=== PATIENT | female | born 1950 | race Two or more races ===

== ENCOUNTER → 2024-08-25 | Outpatient (CLI) | payer OTHER, MEDICAID, SELFPAY ==
--- NOTE | 2024-08-25 | XR_ITS ---
Examination: Hand, left 3 views Technique: Hand AP, oblique, lateral 3 views Date and time of exam: August 25, 2024 at 1216 hours INDICATIONS: Left hand fourth digit trigger finger 3 months FINDINGS: Severe osteopenia No fracture Advanced osteoarthritis first carpometacarpal joint Mild to moderate osteoarthritis interphalangeal joints No dislocation No cortical bone erosions IMPRESSION: Severe osteopenia Advanced osteoarthritis first carpometacarpal joint
== END | disposition home or self-care (01) ==
PROVIDERS: PCP Nurse Practitioner Family; Referring Provider Nurse Practitioner Family; Visit Provider Nurse Practitioner Family
DX: M85.842 Other specified disorders of bone density and structure, left hand (principal); M18.12 Unilateral primary osteoarthritis of first carpometacarpal joint, left hand
CPT/HCPCS: 73130

== ENCOUNTER 2025-01-08 16:24 | Emergency (ER) | payer OTHER, MEDICAID, SELFPAY ==
[2025-01-08 16:24] VITALS: BMI 30.1
[2025-01-08 16:37] VITALS: BP 152/81; PULSE 78; RESP 19; TEMP 36.7; O2SAT 96
--- NOTE | 2025-01-08 16:45 | XR_ITS ---
Examination: CT abdomen and pelvis without contrast. Coronal 3-D reconstructions. Sagittal 2-D reconstructions. Date and time of exam:January 08, 2025 1732 hours INDICATIONS: Epigastric pain and vomiting beginning 5 days ago CTDI: vol (mGy): 7.19 DLP: (mGycm): 378 Technique: Axial images of the abdomen have been obtained, 3 mm slice thickness Intravenous contrast material has not been administered. Low dose protocols were performed. One or more of the following dose reduction techniques were used; automated exposure control, adjustment of the mA and/or KV according to patient size, use of iterative reconstruction technique. Findings: No liver or splenic lesions Absent gallbladder No pancreatic or adrenal mass No renal or ureteral calculi, no hydronephrosis Aortic calcification no aneurysmal dilatation Mildly fluid distended small bowel loops No periappendiceal inflammatory change Atrophic uterus No adnexal mass Contracted urinary bladder Moderate degenerative disc disease L5-S1 moderate narrowing hip joints IMPRESSION: Mildly fluid distended small bowel loops, differential would include ileus, enteritis such as Crohn's disease, early small bowel obstruction not excluded, consider Gastrografin small bowel series follow-up as clinically warranted
--- NOTE | 2025-01-08 16:49 | PD.EDRME ---
Rapid Medical Screening Exam RME Arrival date/time: 01/08/25 16:24 74-year-old female with a history of hypertension presents to the emergency room with a chief complaint of 8 out of 10 epigastric pain, abdominal bloating, vomiting x 4 days I have greeted and performed a focused initial assessment of this patient. A comprehensive ED assessment and evaluation of the patient, analysis of all test results, and completion of the medical decision making process will be conducted by additional ED providers. Chief Complaint: Abdominal Pain Vital signs: Vital Signs Temperature 98.1 F 01/08/25 16:37 Pulse Rate 78 01/08/25 16:37 Respiratory Rate 19 01/08/25 16:37 Blood Pressure 152/81 H 01/08/25 16:37 Pulse Oximetry (%) 96 01/08/25 16:37 Oxygen Delivery Method Room Air 01/08/25 16:37 Vital signs reviewed by provider: Yes
[2025-01-08 17:26] LABS: Basophils # (Auto) 0.1 Thou/mm3 (0.0-0.2); Basophils % (Auto) 1 % (0-2.5); Eosinophils # (Auto) 0.2 Thou/mm3 (0.0-0.5); Eosinophils % (Auto) 1 % (0-10); Hematocrit 39.9 % (36.0-46.0); Hemoglobin 13.9 g/dL (12.0-16.0); Immature Granulocytes % (Auto) 0 % (0-0); Immature Granulocytes Auto 0.04 Thou/mm3 (0.00-0.00); Lymphocytes # (Auto) 1.4 Thou/mm3 (1.0-4.8); Lymphocytes % (Auto) 13 % (10-50); Mean Corpuscular HGB Conc 34.8 g/dl (31.0-37.0); Mean Corpuscular Hemoglobin 29.8 pg (25.0-35.0); Mean Corpuscular Volume 86 fL (80-100); Monocytes # (Auto) 0.6 Thou/mm3 (0.0-0.8); Monocytes % (Auto) 5 % (0-12); Neutrophils # (Auto) 8.5 Thou/mm3 (1.8-7.7); Neutrophils % (Auto) 79 % (37-80); Nucleated Red Blood Cell % 0 /100 WBC (0); Platelet Count 232 Thou/mm3 (140-440); RDW Standard Deviation 40.1 fL (36.4-46.3); Red Blood Count 4.66 Miln/mm3 (4.00-5.20); White Blood Count 10.7 Thou/mm3 (3.6-11.0)
--- NOTE | 2025-01-08 17:35 | PC.NURSE ---
HAVE ATTEMPTED TO CALL RT MULTIPLE TIMES AND LINES BUSY. WILL KEEP TRYING
[2025-01-08] MEDS: MG HYD/AL HYD/SIME (Maalox Reg) SUSP 30 ML UDC PO (17:40)
[2025-01-08] MEDS: ONDANSETRON ODT 4 MG TABRAP PO (17:41)
[2025-01-08 17:45] LABS: Collection Type, Urine Clean Catch
[2025-01-08 17:48] LABS: Alanine Aminotransferase 18 U/L (10-49); Albumin, Serum 4.6 gm/dL (3.4-4.8); Albumin/Globulin Ratio 1.9 (1.2-2.2); Alkaline Phosphatase 58 U/L (46-116); Anion Gap 10 (7-16); BUN/Creatinine Ratio 21 Ratio (12-20); Bilirubin,Total 0.4 mg/dL (0.3-1.2); Blood Urea Nitrogen 17 mg/dL (9-23); Calcium 9.2 mg/dL (8.3-10.6); Calcium (Corrected) 9.2 mg/dL (8.5-10.1); Carbon Dioxide 25.6 mMol/L (20.0-31.0); Chloride 108 mMol/L (98-107); Creatinine (Component) 0.8 mg/dL (0.6-1.3); Estimated Creatinine Clearance 58.8 mL/min (>60); Globulin 2.4 gm/dL (2.3-3.5); Glucose 114 mg/dL (74-106); Lipase 47 U/L (12-53); Osmolality,Calculated 289 (275-295); Potassium 4.1 mMol/L (3.4-5.1); Sodium 144 mMol/L (136-145); eGFR > 60 See Note
[2025-01-08 18:25] LABS: Bacteria,Urine Rare; Bilirubin,Urine Negative (Negative); Blood,Urine Negative (Negative); Clarity,Urine Turbid (Clear/Hazy); Color,Urine Yellow (Lt Yel-Yel); Glucose, Urine Negative (Negative); Ketones,Urine Negative (Negative); Leukocyte Esterase,Urine Positive (Negative); Nitrite,Urine Negative (Negative); PH,Urine 6.5 (5.0-7.0); Protein,Urine Trace (Neg - Trace); RBC,Urine 7 /hpf (0-3); Specific Gravity,Urine 1.027 (1.001-1.035); Squamous Epithelial Cell,Urine 2 /hpf (0-5); Urobilinogen,Urine Negative mg/dL (0.0-1.0); WBC,Urine 36 /hpf (0-5)
--- NOTE | 2025-01-08 18:27 | PD.EDABDPN ---
ED Abdominal Pain RME/HPI General Chief Complaint: Abdominal Pain Stated complaint: VOMITING/DIARRHEA/ABD PAIN X 4 DAYS Time seen by provider: 01/08/25 18:00 Arrival date/time: 01/08/25 16:24 Limitations: no limitations RME / HPI RME / HPI narrative: 01/08/25 16:24 74-year-old female with a history of hypertension presents to the emergency room with a chief complaint of 8 out of 10 epigastric pain, abdominal bloating, vomiting x 4 days I have greeted and performed a focused initial assessment of this patient. A comprehensive ED assessment and evaluation of the patient, analysis of all test results, and completion of the medical decision making process will be conducted by additional ED providers. 74-year-old female with a history of hypertension presents to the emergency room with a chief complaint of 8 out of 10 epigastric pain, abdominal bloating, vomiting x 4 days. Also with intermittent diarrhea. States always has lower abdominal pressure. Denies chronic diseases Related Data Home Medications ?Medication ?Instructions ?Recorded ?Confirmed lisinopril 20 1 tab PO QDAY 05/02/18 05/02/18 mg-hydrochlorothiazide 12.5 mg tablet Previous Rx's ?Medication ?Instructions ?Recorded ibuprofen 600 mg tablet 600 mg PO Q8HR PRN PAIN #30 tabs 09/30/16 ciprofloxacin HCl 500 mg tablet 500 mg PO Q12H 10 days #20 tabs 01/08/25 (Cipro) dicyclomine 10 mg capsule 10 mg PO TID #30 caps 01/08/25 metronidazole 500 mg tablet 500 mg PO BID 10 days #20 tabs 01/08/25 ondansetron 4 mg disintegrating 4 mg PO Q8H PRN nausea and 01/08/25 tablet vomiting #10 tabs Allergies Allergy/AdvReac Type Severity Reaction Status Date / Time hydrocodone Allergy Severe RASH, Verified 01/08/25 16:27 ITCHING Review of Systems Review of Systems Systems Reviewed: All systems reviewed, normal except as documented Constitutional Constitutional: Denies fever(s) Gastrointestinal Gastrointestinal: Reports as per HPI Genitourinary Genitourinary: Reports as per HPI ED Exam General Limitations: Present no limitations General appearance: Present alert and in no apparent distress Eye Eye exam: Present normal appearance, PERRL and EOMI Respiratory Respiratory exam: Present normal lung sounds bilaterally Cardiovascular Cardiovascular exam: Present regular rate, normal rhythm and normal heart sounds Abdominal Exam Abdominal exam: Present soft, tenderness (Suprapubic TTP; diffuse TTP no rebound) and normal bowel sounds Extremities Exam Extremities exam: Present normal inspection and full ROM Back Exam Back exam: Present normal inspection and full ROM Psychiatric Psychiatric exam: Present normal affect and normal mood Skin Skin exam: Present warm, dry, intact and normal color Course Quality Measures none Orders Category Date Time Status CT abdomen pelvis wo con Stat Exams 01/08/25 16:45 Completed CBC Stat Lab 01/08/25 17:08 Completed CMP [Comprehensive Metabolic Panel] Stat Lab 01/08/25 17:08 Completed Lipase Stat Lab 01/08/25 17:08 Completed UA [Urinalysis] Stat Lab 01/08/25 17:28 Completed Urine Culture Stat Lab 01/08/25 17:28 Received Ciprofloxacin HCl [Ciprofloxacin] Med 01/08/25 18:32 Discontinued 500 mg PO X1 ONE Ondansetron Odt [Zofran Odt] Med 01/08/25 16:50 Discontinued 4 mg PO X1 ONE metroNIDAZOLE [Flagyl] Med 01/08/25 18:32 Discontinued 500 mg PO X1 ONE mg Hyd/Al Hyd/Chikis Susp [Maalox Susp] Med 01/08/25 16:45 Discontinued 30 ml PO X1 ONE Vital Signs Vital signs: Vital Signs Temperature 98.1 F 01/08/25 16:37 Pulse Rate 78 01/08/25 16:37 Respiratory Rate 19 01/08/25 16:37 Blood Pressure 152/81 H 01/08/25 16:37 Pulse Oximetry (%) 96 01/08/25 16:37 Oxygen Delivery Method Room Air 01/08/25 16:37 Abdominal Pain MDM Patient data External records reviewed:: [facility] previous records Clinical information provided by:: patient and family Social determinants that could affect healthcare access:: other (specify) (Difficult getting appoint with PCP,) Patient has the following chronic illnesses:: None How is presenting disease/condition affected by chronic disease/condition?: no chronic disease Evaluation data The following diagnostics were reviewed and interpreted by me:: lab results and radiology exam(s) Lab and/or radiology exams considered but not ordered:: CT of chest was also considered however unlikely to change the course of treatment today Interpretation Summary: CBC CMP within normal limits UA did not suggest UTI CT scan suggest enteritis however given discomfort we will treat for infectious process. Advised patient to have EGD and colonoscopy as outpatient procedure. Follow-up with PCP return to ER symptoms worsen Medications / Prescriptions Medications or Prescriptions considered but not ordered:: Considered narcotic however risk of adverse reaction Medication administrations:: Medication Administration History Discontinued Medications Al Hydrox/Mg Hydrox/Simethicone (Mg Hyd/Al Hyd/Chikis (Maalox Reg) Susp 30 Ml Udc) 30 ml PO X1 ONE Stop: 01/08/25 16:46 Last Admin: 01/08/25 17:40 Dose: 30 ml Documented By: EF Ciprofloxacin (Ciprofloxacin Hcl 250 Mg Tablet) 500 mg PO X1 ONE Stop: 01/08/25 18:33 Last Admin: 01/08/25 18:58 Dose: 500 mg Documented By: EF Metronidazole (Metronidazole 250 Mg Tablet) 500 mg PO X1 ONE Stop: 01/08/25 18:33 Last Admin: 01/08/25 18:58 Dose: 500 mg Documented By: EF Ondansetron HCl (Ondansetron Odt 4 Mg Tabrap) 4 mg PO X1 ONE; Protocol Stop: 01/08/25 16:51 Last Admin: 01/08/25 17:41 Dose: 4 mg Documented By: EF See above Consultations Consultation(s) initiated? (list below): No Diagnosis Differential diagnosis abdominal pain: abdominal pain, acute appendicitis, calculus of kidney, diverticulitis, endometriosis, gastroenteritis and pancreatitis Most likely diagnosis given after review of the tests above:: Diarrhea Abdominal pain UTI Admission Indicated Admission indicated?: not indicated Admission Request Was there a request for admission?: No Disposition Plan Disposition Plan: Discharge Discharge Attestation Discharge Attestation: The patient and all family members were given an opportunity to ask questions and understood the discharge instructions. Discharge instructions specifically effects, indications for sooner follow up or return to the emergency department, and the expected course of current diagnosis. Patient condition: Stable Discharge Plan Plan Patient Disposition: HOME (Self Care) Discharge Disposition comment: Follow-up with PCP in 2 to 3 days Prescriptions/Referrals Prescriptions/Med Rec: New ciprofloxacin HCl [Cipro] 500 mg tablet 500 mg PO Q12H 10 Days Qty: 20 0RF metronidazole 500 mg tablet 500 mg PO BID 10 Days Qty: 20 0RF ondansetron 4 mg tablet,disintegrating 4 mg PO Q8H PRN (Reason: nausea and vomiting) Qty: 10 0RF dicyclomine 10 mg capsule 10 mg PO TID Qty: 30 0RF No Action ibuprofen 600 MG tablet 600 mg PO Q8HR PRN (Reason: PAIN) Qty: 30 0RF lisinopril-hydrochlorothiazide 20-12.5 mg Tablet 1 tab PO QDAY Problem List Clinical Impression: Diarrhea, Abdominal pain, Vomiting, Acute UTI Patient/Caregiver Discharge Instructions Education Materials: Abdominal Pain, ED Diarrhea, Unknown Cause Print Language: Pashto Stand Alone Forms: [facility] Award Info., Patient Portal Info Letter PA/PHOTOGRAPH DEVELOPER Supervising Physician PA/PHOTOGRAPH DEVELOPER Supervising Physician: Dr. Altman
[2025-01-08] MEDS: CIPROFLOXACIN HCL 250 MG TABLET 500 MG PO (18:58)
[2025-01-08] MEDS: metroNIDAZOLE 250 MG TABLET 500 MG PO (18:58)
[2025-01-08 19:03] VITALS: BP 127/74; PULSE 69; RESP 16; TEMP 36.3; O2SAT 96
== END 2025-01-08 19:08 | disposition home or self-care (01) ==
LOC: SERX 19:13
PROVIDERS: Nurse Practitioner Family; Emergency Provider Emergency Medicine; PCP Nurse Practitioner Family
DX: N39.0 Urinary tract infection, site not specified (principal); R10.13 Epigastric pain; R11.10 Vomiting, unspecified; R19.7 Diarrhea, unspecified
CPT/HCPCS: 36415; 74176; 80053; 81001; 83690; 85025; 87086; 99284; Q0162; A9270

== ENCOUNTER → 2025-01-19 | Outpatient (CLI) | payer OTHER, MEDICAID, SELFPAY ==
--- NOTE | 2025-01-19 12:08 | XR_ITS ---
Examination: Abdomen sonogram, complete Date and time of exam: January 19, 2025 1211 hours INDICATIONS: Epigastric pain beginning 2 weeks ago. Technique: Multiple real-time grayscale transabdominal sonographic images of the abdomen have been obtained. Findings: Gallbladder not visualized Common bile duct 0.5 cm no stones Pancreatic head 2.0 cm Liver 13.3 cm smooth contour no focal liver lesions Normal hepatopedal portal venous flow Patent IVC Right kidney 10.4 cm cortex 1.4 cm Left kidney 9.7 cm cortex 1.2 cm No hydronephrosis or renal calculi Spleen 10.1 cm IMPRESSION: Gallbladder not visualized Normal common bile duct No focal liver lesions
== END | disposition home or self-care (01) ==
LOC: CDIM 11:57
PROVIDERS: PCP Family Medicine; Referring Provider Nurse Practitioner Family; Visit Provider Nurse Practitioner Family
DX: R10.13 Epigastric pain (principal)
CPT/HCPCS: 76700

== ENCOUNTER → 2025-03-09 | Outpatient (CLI) | payer OTHER, MEDICAID, SELFPAY ==
--- NOTE | 2025-03-09 07:30 | XR_ITS ---
MRI shoulder, left, without contrast. Date and time: March 09, 2025 0747 hours INDICATIONS: Left shoulder pain radiating to the arm for years Technique: Multiple axial, sagittal and coronal sections of the shoulder have been obtained. Siemens high-resolution 1.5 Dianne MRI scanner is utilized. Axial fat-suppressed sections, TR 2350, TE 18 T2-weighted coronal fat-saturated images, TR 3500, TE 7100 T1-weighted coronal images, TR 500, TE 15 T2-weighted sagittal fat-saturated images, TR 3500, TE 57 T1-weighted sagittal sections, TR 504, TE 13. Findings: Supraspinatus tendon insertion is abnormal, 8mm partial-thickness articular surface tear. Infraspinatus tendon insertion is intact. Subscapularis insertion is intact. Subscapularis bursa is not seen. Long head of the biceps is in the bicipital groove. No definite tear of the biceps superior labral anchor is seen. Retraction of the musculotendinous junction of the rotator cuff is not significant. Tendinosis pattern is prominent. Distance between the acromium and humeral head is 4.4 mm Atrophy of the supraspinatus muscle is severe. Atrophy of the infraspinatus muscle is moderate. Sagittal sections demonstrate a horizontal acromion. Acromioclavicular joint demonstrates moderate osteoarthritis. Osacromiale is not identified. Labral margins intact. Bony glenoid fossa on the sagittal sections does not demonstrate osseous defect. Occult fracture or area of avascular necrosis is not seen. Acromioclavicular joint separation is not visible. Defect in the posterolateral margin of the humeral head is not seen Impression: 8mm partial-thickness articular surface tear supraspinatous Prominent rotator cuff tendinosis
== END | disposition home or self-care (01) ==
LOC: SMRI 07:11
PROVIDERS: PCP Family Medicine; Referring Provider Orthopaedic Surgery; Visit Provider Orthopaedic Surgery
DX: M75.102 Unspecified rotator cuff tear or rupture of left shoulder, not specified as traumatic (principal)
CPT/HCPCS: 73221